=== PATIENT | male | born 1960 | race Caucasian/White ===

== ENCOUNTER 2018-02-14 19:36 | Emergency (ER) | payer OTHER ==
[~2018-02-14] VITALS: Ht 185.4 cm; Wt 113.9 kg
[~2018-02-14 19:36] MED LIST: BACTRIM DS TAB1 EACH PO; FLOMAX0.4 MG PO; LEVAQUIN500 MG PO; NORCO 10MG-325MG1 EA PO; NORCO 5-325 TA1 EACH PO
[2018-02-14 20:00] VITALS: BP 142/80
== END 2018-02-14 20:02 | disposition home or self-care (01) ==
LOC: FSED 19:36
DX: K04.7 Periapical abscess without sinus (principal)
CPT/HCPCS: 99282